=== PATIENT | female | born 1940 | race Caucasian/White ===

== ENCOUNTER 2020-10-20 13:03 | Emergency (ER) | payer MEDICARE ==
[~2020-10-20] VITALS: Ht 152.4 cm; Wt 69.8 kg
[~2020-10-20 13:03] MED LIST: ATIVAN1 M1 PO; B-125000 MCG/1; CARVEDILOL12.5 MG; CIPROFLOXIN HC2.5 M1 OPHTHALMIC; CO Q-10100 MG PO; CODEINE SULFATE15 MG PO; COUMADIN 2.5MG2.5 M1 PO; DOXYCYCLINE 10100 M2 PO; HYDROCODON-ACE1 EAC7 PO; HYDROCODON-ACE1 EAC8 PO; LEVO-T75 MCG PO; LIPITOR20 MG PO; NORCO 5-325 TA1 EAC1 PO; NORCO 5-325 TA1 EAC2 PO; NORCO 5-325 TA1 EACH PO; POTASSIUM20 PO; SILALITE 0.1%1 EACH TOP; SPIRONOLACTONE25 MG PO; SYNTHROID50 MCG PO; TOPROL XL100 MG PO; TOPROL XL25 MG PO; VITAMIN D350 MC2 PO; VITAMINC500 PO; ZINC SULFATE220 MG PO
[2020-10-20 13:24] LABS: ABSOLUTE NEUTROPHILS 8.7 thou/uL (1.4-8.2); BASOPHILS 0.5 % (0.0-2.0); HEMATOCRIT 32.4 % (37.0-47.0); HEMOGLOBIN 10.8 gm/dL (12.0-15.0); LYMPHOCYTES 7.8 % (24.0-44.0); MCH 31.1 pg (26.0-34.0); MCHC 33.4 g/dL (28.0-37.0); MONOCYTES 5.3 % (1.0-8.0); PLATELET COUNT 325 thou/uL (150-400); POLYS 80.4 % (36.0-66.0); RBC 3.48 mil/uL (4.20-5.00); RDW 17.8 % (10.5-14.5); WBC 10.8 thou/uL (4.0-11.0)
[2020-10-20 13:41] LABS: URINE BILIRUBIN NEGATIVE (Negative); URINE BLOOD TRACE (Negative); URINE CLARITY HAZY; URINE COLOR YELLOW; URINE GLUCOSE-RANDOM* NEGATIVE (Negative); URINE KETONES NEGATIVE (Negative); URINE LEUKOCYTES-REFLEX 2+ (Negative); URINE NITRITE-REFLEX POSITIVE (Negative); URINE PROTEIN (DIPSTICK) TRACE (Negative); URINE UROBILINOGEN 0.2 E.U./dl (0.2-1.0)
[2020-10-20 13:42] LABS: CALCIUM 9.6 mg/dL (8.5-10.1); CREATININE 1.4 mg/dL (0.6-1.0); POTASSIUM 4.4 mmol/L (3.5-5.1)
[2020-10-20 13:48] LABS: ALBUMIN 2.7 g/dL (3.4-5.0); TOTAL BILIRUBIN 0.4 mg/dL (0.2-1.0); TOTAL PROTEIN 7.4 g/dL (6.4-8.2)
[2020-10-20 13:50] LABS: APTT 42.9 Seconds (24.5-32.8); INR 1.94; PROTIME 20.5 Seconds (10.5-12.1)
[2020-10-20 14:08] LABS: URINE WBC-REFLEX >25 Many /HPF (0-5); WBC CLUMPS Many (None Seen)
[2020-10-20 14:09] LABS: BACTERIA-REFLEX >30 Many /HPF (None Seen); MUCUS 4-6 Moderate strn/LPF (None Seen); SQUAMOUS 0-3 Few /LPF (0-3)
[2020-10-20 14:10] LABS: CASTS None Seen /LPF (None Seen); CRYSTALS None Seen /LPF (None Seen); URINE RBC 1-2 Rare /HPF (NONE SEEN)
[2020-10-20] MEDS ORDERED: HYDROXYZINE HCL25 M2 PO (15:49)
[2020-10-20] MEDS ORDERED: CEPHALEXIN500 MG PO (15:49)
--- NOTE | 2020-10-20 16:07 | EKG ---
[place] [place] [address] ELECTROCARDIOGRAM REPORT Name: POONAM KING Room #: [facility]#: [id number] Admission: 10/20/20 Attend Phys: Discharge: Date of : 38 Report #: [id number] [facility] ED Test Date: 2020-10-20 Test Time: 13:50:12 Pat Name: POONAM KING Department: Room: Gender: F Flight Manager: NATANAEL : 1940 Requested By: Kavitha Spaulding Order Number: [id number] MD: Luis Dodd Measurements Intervals [place] Rate: 99 P: MD: QRS: -30 QRSD: 79 T: 18 QT: 328 QTc: 421 Interpretive Statements Atrial fibrillation Poor R wave progression Low voltage, extremity leads No previous ECG available for comparison Electronically Signed On 10-20-2020 16:07:05 CDT by Luis Dodd [email or web address] <ELECTRONICALLY SIGNED> By: Luis Dodd MD, [facility] 10/20/20 1607 1350 1350 Luis Dodd MD, FACC /EPI
[2020-10-20 17:03] VITALS: BP 122/67
== END 2020-10-20 17:03 ==
LOC: ER 13:03
PROVIDERS: Nurse Practitioner Family
DX: N39.0 Urinary tract infection, site not specified (principal); L29.9 Pruritus, unspecified; I48.91 Unspecified atrial fibrillation; E78.5 Hyperlipidemia, unspecified; Z90.49 Acquired absence of other specified parts of digestive tract; Z90.710 Acquired absence of both cervix and uterus; Z79.01 Long term (current) use of anticoagulants; Z79.899 Other long term (current) drug therapy; Z88.0 Allergy status to penicillin; Z88.2 Allergy status to sulfonamides; Z91.048 Other nonmedicinal substance allergy status; Z88.8 Allergy status to other drugs, medicaments and biological substances; Z20.822 Contact with and (suspected) exposure to COVID-19

== ENCOUNTER 2020-10-20 13:39 | Inpatient (IN) | payer OTHER, BC ==
[~2020-10-20] VITALS: Ht 160 cm; Wt 71.0 kg
[2020-10-20] MEDS ORDERED: HYDROXYZINE HCL25 M2 PO (15:49)
[2020-10-20] MEDS ORDERED: CEPHALEXIN500 MG PO (15:49)
[2020-10-23 09:34] VITALS: BP 105/48
[2020-10-23 10:06] VITALS: BP 105/48
--- NOTE | 2020-10-23 10:51 | NUR ---
PT. ARRIVED AT 0715 ON STRETCHER FROM [facility] ER. PT. HAS BEEN LIVING [facility] WHERE SHE LIVES WITH HER . SHE IS A WHITE FEMALE 79 Y/O. SHE HAS BEEN PREOCCUPIED AT HOME CALLING 911, SCREAMING ALL NIGHT, THINKS SHE IN [place]. SHE HAS BEEN HAVING INCREASED CONFUSION, AND PARANOID. SHE WAS A&O X3. SHE COULD NOT STATE WHERE SHE WAS CURRENTLY. REPORT FROM ER STATED SHE SCREAMED ALL NIGHT. SHE IS ALLERGIC TO PCN, METHALPREDNISONE, SULFA (SULFONAMIDE ABO'S), AND ADHESIVE TAPE (THE GLUE IB THE TAPE). SHE ALSO HAS IDDM, CHF, CHRONIC BACK PAIN, HTN, CKD. SHE STATES AT HOME THE [facility] COMPLAINED SHE WAS ALWAYS ON HER CALL LIGHT. SHE STATES SHE WANTED HER CIPRO AND SHE IS ALWAYS FREEZING AND/OR COLD. SHE DOES HAVE TOP AND LOWER DENTURES, NO GLASSES AND NO HEARING AIDES. SHE DENIES SI/HI OR AVH. SHE HAS TWO GIRLS BY A FIRST MARRIAGE. SHE HAS BEEN TO THIS 35. SHE STATES SHE AMBULATES WITH A WALKER WITH ASSISTANCE OF 1 OR 2. SHE LIKES HORSE BACK RIDING, AND CROCHETING. HER HUSBANDS NAME IS ROSALIE. SHE CURRENTLY DOES HAVE A UTI AND IS ON CIPRO.
--- NOTE | 2020-10-23 12:44 | NUR ---
Executive Communications Manager spoke to both DON and Unit Assistant Rylee - [phone] regarding the admission of patient. They were thankful for the update and said that they are willing to take patient back once she is stable. They also said to let them know if she needs anything like clothing, etc. Told them we would reach out if she did.
[2020-10-23 13:07] LABS: INR 1.65; PROTIME 17.6 Seconds (10.5-12.1)
[2020-10-23 19:55] VITALS: BP 102/63
--- NOTE | 2020-10-23 20:13 | NUR ---
CORRECT PHONE NUMBERS FOR RYLEE MICHAELLOSI, PTS [phone] CELL [phone] HOME
[2020-10-23 23:41] VITALS: BP 102/63
--- NOTE | 2020-10-24 05:17 | NUR ---
10-23-201914, SEATED IN HER W/C, COMPLAINS ABOUT EVERYTHING, AND WHEN PROVIDED WHAT SHE REQUESTS, SAYS THIS IS NOT LIKE MINE AT HOME. IS CONFUSED AND THINKS THAT SHE IS IN HER RESIDENCE FACILITY. REORIENTED TO PLACE, [facility] REPEATEDLY. A&OX2, ABLE TO STAND AND TRANSFER X2 ASSIST. FUSSING ABOUT NOT HAVING HER PHONE. REORIENTED TO USE OF HOSPITAL CORDLESS PHONE TO CALL FAMILY, APROPRIATE HOURS SHARED. TOOK TRAZADONE 50 @ HS WITH HER HS MEDS. TOILETED Q2 HOURS, WEARS BRIEF. REFUSED TO LAY DOWN IN BED. RETURNED TO DAY ROOM AND SEATED IN CORKY CHAIR. @ 0405, AFTER HAVING BEEN AWAKE ALL NOC, BECAME N/V X1 EMESIS NOTED. ZOFRAN 4MG ODT PROVIDED. VS SPO2 99% 98/63 119 20. ALLOWED HERSELF TO BE TRANSFERRED TO THE BS, DRESSED IN A CLEAN GOWN AND TRANSFERRED TO BED. STAYED IN BED FOR A FEW HOURS, CURRENTLY IN BED AT THIS TIME.
[2020-10-24 09:21] VITALS: BP 98/54
[2020-10-24 09:36] VITALS: BP 102/58
--- NOTE | 2020-10-24 11:13 | NUR ---
1115 RESUMMED CARE FROM OVERNIGHT SHIFT THIS AM, PATIENT IN ROOM LYING QUIET IN BED. PATIENT BROUGHT TO DAY ROOM FOR BREAKFAST TOOK MEDICATION WITHOUT INCIDENCE. PATIENT ALERT ORIENTED TO SELF ONLY PATIENT DENIES SI/HI/AH/VH AT PRESENT. PATIENTS ABDOMEN SOFT BOWEL SOUNDS PRESENT PATIENTS LUNGS CLEAR. PATIENT HAS CONFUSION PATIENT COMPLAINED ABOUT BACK PAIN, SHE A LIDOCAINE PATCH TO AFFECTED AREA. PATIENT WANTED TO SLEEP ONLY HAD 2 HOURS OF SLEEP, PATIENT IN CORKY CHAIR WITH FEET UP. PATIENT HAS NOT DISPLAYED ANY BEHAVIORS THIS SHIFT. WILL CONTINUE TO MONITOR PATIENT FOR SAFETY AND BEHAVIORS
--- NOTE | 2020-10-24 15:11 | NUR ---
Woman called asking to talk to her mother and gave pt name. When asked for privacy code she gave number that did not match any of the digits. When told code was incorrect she stated that was the number she had given out to "everyone". She proceeded to stated that she was the emergency contact and DPOA. When asked what her name was it was different from emergency contact and was listed as secondary DPOA. Name also did not match caller ID name. Privacy code rechecked and did not match. Caller asked for my name and then started asking for other nurses names. Another called with same incorrect code.
[2020-10-24 19:55] VITALS: BP 96/57
--- NOTE | 2020-10-24 23:58 | NUR ---
SITTING IN GERICHAIR IN DAYROOM RESTING WITH EYES CLOSED UPON INITIAL ASSESSMENT AT 1945. EASILY AROUSABLE TO VERBAL STIMULI. INITIALLY DURING 1;1 AND PM ASSESSMENT IRRITABLE WITH MULTIPLE COMPLAINTS RE FOOD,CARE,FAMILY NEGLECTS HER ETC.. SHORTLY THERAFTER BECAME LOUDLY TEARFUL STATING SHE MISSES HER DOG AND COULDN'T HAVE HER PHONE TO LOOK AT PICTURES OF IT-DID CALM WITH SUPPORT AND REASSURANCE AND TALKED AT LENGTH ABOUT HER PETS,MARRIAGE,CAREER ETC. IS ORIENTED TO NAME ONLY-INCORRECTLY IDENTIFYING MONTH JUL AND BELIEVES SHE IS STILL AT ASSISTED LIVING FACILTIY. COMPLIENT WITH TAKING HS MEDICATIONS. DID HAVE 2 LARGE BM THIS PM-1ST SOFT 2ND SEMI FORMED TO LOOSE. REFUSES HS COLACE STATING DOESN'T WANT IT BECAUSE OF DIARRHEA. STATES SHE PREFERS TO SLEEP IN DAYROOM SO IS CURRENTLY RESTING QUIETLY IN GERICHAIR IN DAYROOM.
--- NOTE | 2020-10-25 06:18 | NUR ---
AWAKE SINCE APPROX 0130-SITTING IN GERICHAIR IN DAYROOM PER HER REQUEST-TOILETED Q 2 HOURS AND DID HAVE 1 ADDITIONAL LARGE LOOSE STOOL(-TOTAL OF 3 THIS PM) INITIALLY SITTING QUIETLY VISITING WITH FEMALE PEER-AT 0400 BEGAN TO C/O ITCHING REQUESTING BENADRYL-BENADRYL 25MG GIVEN PO PRN WITH REPORTED MINIMAL RELIEF ON FOLLOW UP-REQUESTING "MY ITCH CREAM" SKIN PROTECTANT/MOISTURIZER APPLIED TO ARMS,LEGS,BACK,NECK PER REQUEST. PROVIDED WITH COOL WASH CLOTH,BACK RUB AND APPROX 45 MINUTES 1;1 TIME WITH STAFF BUT CONTINUES TO EXPRESS DELUSIONS OF PERSECUTION STATING "NO ONE WILL HELP ME-NO ONE WILL TAKE CARE OF ME-DON'T THEY KNOW I CAN'T HELP MYSELF" ASKING PEERS TO RUB HER BACK TELLING THEM STAFF WON'T HELP HER.DID HAVE BRIEF EPISODE OF LOUD TEARFULNESS BEFORE FALLING ASLEEP AT APPROX 0615
[2020-10-25 09:57] VITALS: BP 82/54
[2020-10-25 14:48] LABS: PROTIME 27.3 Seconds (10.5-12.1)
[2020-10-25 15:01] LABS: INR 2.62
--- NOTE | 2020-10-25 18:48 | NUR ---
0700 ASSUMED CARE OF PATIENT. PATIENT CALM AND COOPERATIVE. PATIENT FEEDS SELF WITH MIN ASSIST. MEDICATION TAKEN WHOLE WITH SOME QUESTIONS REGARDING MEDS. C/O PAIN TO BACK, STATES SCHEDULED TYLENOL IS ENOUGH. DENIES SI/HI. BS ACTIVE, LS CLEAR. PATIENT IN GERICHAIR SLEEPING OFF AND ON.
[2020-10-25 19:22] VITALS: BP 96/52
--- NOTE | 2020-10-26 01:53 | NUR ---
10-25-20 CARE TRANSFERRED 0 OBSERVED PT SITTING IN DAY ROOM SOCIALIZING WITH PEERS. LATER PT AAOX4, VSS, RR EVEN AND NONLABORED ON RA. PT DENIES SI/HI, DOES REPORT PAIN IN LOWER BACK SCORES 5 ON 0-10 SCALE. PT PRESENTS TEARFUL AND DEMANDING SHE WANTS TO GO HOME TO HER LITTLE DOG. DURING MEDICATION ADMIN PT HAD NO DIFFICULTIES. LATER PAIN PT REPORTED PAIN WAS 3 ON 0-10 SCALE. LATER PT REPORTED ITCHING AND NASAUATED, MANAGED WITH PRN MEDICATION, LOTION APPLIED TO PT REQUESTED AREAS. PT BED WAS ADJUSTED FOR COMFORT. ZERO S/S OF ACUTE DISTRESS NOTED, PT WILL CONTINUE TO BE MONITOR PER [facility] PROTOCOL.
[2020-10-26 09:17] VITALS: BP 112/70
--- NOTE | 2020-10-26 09:31 | NUR ---
0700 ASSUMED CARE OF PATIENT, PATIENT IN BED AT THAT TIME. PATIENT CHANGED AND TRANSFERED TO [facility] X 2 ASSIST. PATIENT YELLING OUT STATING "I CAN WALK AND WANT TO GO HOME". PATIENT TO DAYROOM IN [facility]. POWER EQUIPMENT TECHNOLOGY INSTRUCTOR APPROCHES PATIENT FOR MED PASS PATIENT STATES "I AM FINE AND WANT TO GO HOME". MEDICATION GIVEN TO PATIENT AND EDUCATED ON WHAT PATIENT IS RECIEVING PER PATIENT REQUEST. PATIENT STATES "I DO NOT NEED ALL OF THESE MEDS AND I NEED TO TALK TO THE DR. POWER EQUIPMENT TECHNOLOGY INSTRUCTOR OBTAINED MED CUP FROM PATIENT AND PATIENT WITH A LOUD VOICE STATES "JUST GIVE THEM LY I WILL TAKE THEM". MEDICATON TAKEN WHOLE WITHOUT DIFFICULTY. PATIENT DISRUPTING AM GROUP AND MOVED TO [place]. PATIENT MUMBLING TO SELF AND CALM AT THAT TIME. WILL CONTINUE TO OBSERVE
--- NOTE | 2020-10-26 11:47 | NUR ---
NAM spoke with Yanira Holland who initially asked when pt was going home. NAM provided an update and explained Dr. Donovan would like a family meeting. Yanira agreed but said she will be the only one in attendance by phone as pt's cannot hear well, and pt's niece just began a new job and cannot attend. Family meeting will be 10/27/20 @11am. NAM contacted [facility] at [phone], and obtain the fax number of [phone] to send updates for pt. NAM faxed updates. NAM team will continue to follow pt during her stay on this unit.
--- NOTE | 2020-10-26 12:26 | NUR ---
Nutrition: Seen due to new admit [facility]. Dx anxiety/confusion. pt reports 40# weight loss per hx even though she eats well. No meditech hx, unable to confirm accuracy. po intake 50-75% of meals with good appetite reported. pt asking for ensure supplements. Hx DM reported by nsg and is on carb controlled diet. Currently with hypoglycemia trends, BG 66-102. Will send Glucerna on trays for now as pt requests TID and follow BG/weight/po trends. Place as low nutrition risk.
--- NOTE | 2020-10-26 18:43 | NUR ---
PATIENT CONTINUES TO ATTENTION SEEK THROUGHOUT THE DAY. PATIENT REFUSES MEDICATION EVERYTIME AND WHEN BUSINESS SYSTEMS LEAD TAKES BACK CUP OF MEDS PATIENT THEN STATES "JUST GIVE IT TO ME I WILL TAKE THEM". PATIENT C/O NOT GETTING THE CORRECT MEDICATION EACH TIME. BUSINESS SYSTEMS LEAD EDUCATES PATIENT ON MEDS EACH TIME.
[2020-10-26 20:04] VITALS: BP 104/45
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
--- NOTE | 2020-10-27 04:40 | NUR ---
RESISTIVE WITH SOME OF HS MEDICATIONS THIS PM INCLUDING DEPAKOTE AND ZYPREXA STATING "I DON'T NEED ANYTHING FOR MY MOOD MY MOOD IS FINE" DID TAKE ZYPREXA AND 2 DEPAKOTE TABLETS BUT REFUSED THIRD STATING THAT IT WAS "TOO MUCH-THAT DR JUST WANTS TO KNOCK ME OUT" REQUESTED AND RECEIVED BENADRYL 25MG PO PRN FOR ITCHING TO TORSE AND ARMS . SOME MOOD LABILITY REMAINS BUT IS NOTABLY LESS THEN ON PREVIOUS SHIFTS -TEARFUL WHEN SPEAKING ABOUT HER DOG THAT AND HOW HER FAMILY DOESN'T COME TO VISIT HER. DOES RESPOND WELL TO SUPPORT,REASSURANCE FROM NURSING STAFF. IMPROVED PARTICIPATION IN TOILETING AND ADLS THIS PM-WALKED WITH SBA X2 FROM COMMODE TO BED AND TOLERATED THIS ACTIVITY WELL .
[2020-10-27 05:20] LABS: INR 2.93; PROTIME 30.3 Seconds (10.5-12.1)
[2020-10-27 09:02] VITALS: BP 107/62
[2020-10-27 09:08] VITALS: BP 107/62
--- NOTE | 2020-10-27 10:44 | NUR ---
1045 RESUMMED CARE FROM OVERNIGHT SHIFT THIS AM, PATIENT IN ROOM LYING QUIETLY. I GOT PATIENT UP GOT HER READY FOR BREAKFAST, SHE ATE TOOK MEDICATION WITHOUT INCIDENCE. PATIENT ALERT ORIENTED TO SELF ONLY PATIENT COMPLAINED OF BACK PAIN. PATIENT GETS SCHEDULED TYLENOL AND A LIDOCAIINE PATCH FOR HER BACK PAIN. PATIENT DENIES SI/HI/AH/VH AT PRESENT PATIENT PARTICPATES IN GROUPS AND DOES INTERACT WITH SOME OF THE PATIENTS. PATIENTS ABDOMEN SOFT BOWEL SOUNDS PRESENT. PATIENTS LUNGS CLEAR PATIENT HAS NOT DISPLAYED ANY BEHAVIORS WILL CONTINUE TO MONITOR PATIENT FOR SAFETY AND BEHAVIORS.
--- NOTE | 2020-10-27 11:24 | NUR ---
NAM and Dr. Donovan facilitated a family meeting with Yanira via phone. Dr. Donovan provided updates and told her that he believes she has a dementia. Yanira said her plans of moving pt's to [facility] to her apartment; pt will also be able to have her dog that she loves. In the meeting pt was agitated with Dr. Donovan when he mentioned what he believes pt suffers from. He explained that he will administer a SLUMS with pt. He suggested to Yanira that pt has a neuropsych exam in January/February. SW team will continue to follow pt during her stay on this unit.
[2020-10-27 19:05] VITALS: BP 108/61
--- NOTE | 2020-10-28 00:27 | NUR ---
Assumed care on 10/27/18 @ 19:15, seated in the day room, socializing with peers and facing the TV. Oriented to self. Proovided scheduled meds, Trazadone KBS14mt, Benedryl 25mg for itching @ 21:45. Calamine lotion topical applied to back and sides. Took meds whole with water. Very slow to comply with positioning to take meds while in bed. Refuses help, but is weak to reposition self in the bed. Repositioned in bed after application of calamine and removal of pain patch on back. Pt states that she has never used calamine and does not know if it works well. Bed in low position, bed alarm set, will continue to monitor for safety and comfort as per unit protocol.
[2020-10-28 08:00] VITALS: BP 110/48
--- NOTE | 2020-10-28 11:35 | NUR ---
PATIENT HAS BEEN UP, AND OUT ON THE UNIT, USES WHEELCHAIR FOR MOBILITY, ABLE TO PROPEL SELF. PATIENT TOOK ALL MORNING MEDICATION WHOLE WITHOUT DIFFICULTY, SHE IS EATING MEALS, AND DRINKING FLUID WELL. PATIENT IS A&O X 2-3, FORGETFUL, AND CONFUSED AT TIMES. PATIENT DENIES SUICIDAL/HOMICIDAL IDEATION "OF COURSE NOT I GOT NEW BORN GREAT GRANDSON AM LOOKING FORWARD TO SEE SOON". FOR DEPRESSION, SHE STATES "AM NOT DEPRESSED, AM JUST ANGRY THAT I DON'T HAVE CONTROL OVER MY LIFE". PATIENT HAS HISTORY OF CHRONIC BACK PAIN, RATES BACK PAIN 9/10, PRN TYLENOL 650MG GIVEN, PAIN PATCH ALSO APPLIED PER ORDER. PATIENT BLOOD SUGAR THIS MORNING WAS 61, ORANGE JUICE GIVEN, PATIENT CONSUMED 100% BREAKFAST, BLOOD SUGER RECHECKED WITH RESULT OF 80. NO S&S HYPOGLYCEMIA NOTED. PT/OT WORKING WITH PATIENT, SHE IS TOLERATING IT WELL. CALAMINE LOTION APPLIED ALL OVER HER BODY FOR ITCHING. AFFECT IS SAD/BLUNTED, MOOD DEPRESSED. NO SIGN OF ACUTE DISTRESS NOTED AT THIS TIME, WILL MONITOR FOR SAFETY.
[2020-10-28 13:30] LABS: INR 3.33; PROTIME 34.3 Seconds (10.5-12.1)
--- NOTE | 2020-10-28 18:36 | NUR ---
PATIENT HAS BEEN UP IN WHEELCHAIR, ABLE TO PROPEL SELF. SHE IS FORGETFUL, AND INTERMITTENT CONFUSION NOTED. PATIENT TOOK ALL MEDICATION WHOLE WITHOUT DIFFICULTY, SHE IS EATING MEALS, AND DRINKING FLUID WELL. PATIENT DENIES SUICIDAL/HOMICIDAL IDEATION "OF COURSE NOT, I HAVE GOT A NEW BORN -GREAT GRANDCHILD THAT I HAVE BEEN LONGING TO SEE". FOR DEPRESSION, PATIENT STATES "AM NOT DEPRESSED, AM ANGRY THAT I DON'T HAVE CONTROL OVER MY OWN LIFE, I DON'T WANT TO BE ALONE". PATIENT CONSTANTLY SAYING "HELP ME HELP ME NOBODY WANT TO HELP ME". WHEN ASKED WHAT SHE NEEDS HELP WITH, SHE DENIES NEED. "MY FAMILY DON'T WANT TO COME SEE ME". PATIENT BLOOD SUGAR BEFORE BREAKFAST WAS 61, ORANGE JUICE GIVEN, AND SHE COMSUMED 100% BREAKFAST, BLOOD SUGAR RECHECKED WITH RESULT OF 80. BLOOD SUGAR BEFORE LUNCH 82, BEFORE SUPPER 80. PATIENT DID NOT REQUIRES SLIDING SCALE INSULIN, NO S&S OF HYPOGLYCEMIA NOTED. PATIENT GOT SHOWER THIS PM, WELL TOLERATED. PATIENT HAS HX OF CHRONIC BACK PAIN, GETTING MEDICATION FOR PAIN. PRN CALAMINE LOTION APPLIED ALL OVER THIS MORNING FOR ITCHING. PRN BENADRYL GIVEN THIS PM FOR ITCHING. PATIENT CURRENTLY CRYING "PLEASE HELP ME I WANT TO GO HOME". PATIENT CONSTANTLY REDIRECTED, AND REORIENTED. AFFECT IS SAD, MOOD IS DEPRESSED. NO SIGN OF ACUTE DISTRESS NOTED AT THIS TIME, WILL MONITOR FOR SAFETY.
[2020-10-28 19:05] VITALS: BP 115/65
--- NOTE | 2020-10-29 01:23 | NUR ---
ASSESSED PT. A&OX3 FORGEFUL AND CONFUSED. SITTING ON WHEELCHAIR. EVENING MEDS GIVEN CRUSHED IN PUDDING PT ABLE TO TAKE IT DOWN. PT RECOMMENDED WILL PREFER TO TAKE IT WHOLE WITH PUDDING NEXT TIME. PT STATED BENADRLY DID HELP HER WITH HER ITCHING BUT CALAMINE LOTION DOESN'T REALLY HELP. UP WITH ASSIST TO THE BSC. TYLENOL GIVEN FOR BACK PAIN. PT HOPING TO TALK TO DTR TOMORROW AND DO MORE THERAPY TO GET BACK ON HER FEET. RESTING WELL IN BED WILL CONT TO MONITOR.
[2020-10-29 06:22] LABS: INR 4.1; PROTIME 41.8 Seconds (10.5-12.1)
[2020-10-29 07:27] VITALS: BP 93/43
--- NOTE | 2020-10-29 12:00 | NUR ---
[facility] SW team will continue to follow pt during her stay on this unit.
[2020-10-29 17:07] VITALS: BP 93/43
--- NOTE | 2020-10-29 17:16 | NUR ---
Assumed pt care at 0700. pt was alert and oriented to person, situation and time. Assessments completed, vss. pt was calm and co-operative with care. Took meds whole, no difficulty noted. PT abulates with a w/c. pt goals was to work with pt. Denies si/hi/. c/o pain. pain meds administered as ordered. pt c/o of itching benedryl administered as ordered. pt had two occurance of bowel movement this shift. AT this time pt is eating dinner. will continue to monitor.
[2020-10-29 19:46] VITALS: BP 128/68
--- NOTE | 2020-10-30 04:32 | NUR ---
ASSESSMENT: PT REMAIN ALERT AND ORIENT TIMES THREE. TOOK MEDS WHOLE WITH WATER. AFTER TAKING MEDS, PT DID HAVE A WEAK NON-PRODUCTIVE COUGH. PT STATE THAT SHE JUST BEGAN TAKING LISINOPRIL AND THAT SHE THINKS HER COUGH IS R/T PAST CHEMO/RADIATION TREATMENTS. SLEPT MOST OF THE NIGHT, WILL CONTINUE TO MONITOR.
[2020-10-30 05:43] LABS: INR 3.53; PROTIME 36.2 Seconds (10.5-12.1)
[2020-10-30 10:18] VITALS: BP 112/73
[2020-10-30 10:25] VITALS: BP 112/73
--- NOTE | 2020-10-30 12:04 | NUR ---
In tx team it was discussed tht pt is ready for d/c. NAM contacted [facility] and spoke to Sarita who asked her to send updates via email to [email or web address]. She said the fax from yesterday was too dark. She agreed to a 10 am discharge on Monday, and asked SW to arrange transportation and have pt undergo a covid test. NAM provided an update to Dr. zamora. NAM contacted [employer] and arranged for transportation on Monday; trip # is [id number]. NAM contacted Yanira and provided an update. NAM emailed via encrypted email updates for pt. SW team will continue to follow pt during her stay on this unit.
--- NOTE | 2020-10-30 12:11 | NUR ---
In tx team it was discussed that pt is ready for d/c on Monday. SW contacted pt's who agreed upon a 10 am discharge. NAM asked who is pt's PCP and was told Radha Pinto in [facility] at [phone]. NAM asked Edgard if he would like information for a psych doctor for pt. He declined and said he'd rather stay with pt's PCP. SW team will continue to follow pt during her stay on this unit.
--- NOTE | 2020-10-30 17:20 | NUR ---
Assumed pt care at 0700. pt was alert and oriented to self, time and situation. Took meds whole, no difficulty noted. Calm, and compliant with care. AMbulates with wheel chair. Pt had a covid test done this shift. Denies si/hi. c/o pain. Medication administered as ordered. At 1718 pt spilled hot tea on her stomach. No burn noted on her stomach upon assessment. pt denies pain after the incident. AT this time pt is eating dinner. Will continue to monitor.
[2020-10-30 19:44] VITALS: BP 92/61
--- NOTE | 2020-10-31 03:47 | NUR ---
patient aox3 makes needs known. pain controlled this shift. patient took meds with encouragement.patient continent this shift.patient denied all psych issued. patient had a flat affect, poor eye contact, fair grooming and hygiene. patient encouraged fluids. fall precaution in place. patient in bed asleep at this time breathing regular and unlaboured.
[2020-10-31 05:00] LABS: INR 3.01; PROTIME 31.1 Seconds (10.5-12.1)
[2020-10-31 09:19] VITALS: BP 104/59
[2020-10-31 12:48] VITALS: BP 104/59
--- NOTE | 2020-10-31 12:54 | NUR ---
Assumed pt care at 0700. pt was alert and oriented to person, time and situation. Assessments completed,vss. Calm, co-operative and complaint with care. DENIES si/hi. complained of pain. Meds administered as ordered. Ambulates with a w/c. No sign of acute distress noted upon assessments. pt makes needs known. Pt is excited about d/c on Monday. At this time pt is in the day room watching TV. Will continue to monitor.
[2020-10-31 20:50] VITALS: BP 105/64
[2020-11-01 01:13] VITALS: BP 105/64
--- NOTE | 2020-11-01 01:20 | NUR ---
Assumed care on 10/31/20 @ 19:15, high fall risk with a Light of 50 noted. x1-2 assist, uses w/c. to ambulate, can walk with walker for a short distance. Fairly steady ambulation once standing. Cannot stand unaided. Room changed to 521 B. Compliant with medication administration, taking meds whole with water. Held Senna as patient refused d/t loose bm today. Will continue to monitor for safety and comfort as per unit protocol.
[2020-11-01 05:32] LABS: HEMATOCRIT 28.9 % (37.0-47.0); HEMOGLOBIN 9.5 gm/dL (12.0-15.0); MCH 31.5 pg (26.0-34.0); MCV 95.5 fL (80.0-100.0); RBC 3.03 mil/uL (4.20-5.00); RDW 18.2 % (10.5-14.5); WBC 9.8 thou/uL (4.0-11.0)
[2020-11-01 05:44] LABS: CREATININE 1.1 mg/dL (0.6-1.0); POTASSIUM 4.5 mmol/L (3.5-5.1)
[2020-11-01 06:05] LABS: INR 2.48; PROTIME 25.9 Seconds (10.5-12.1)
[2020-11-01 09:12] VITALS: BP 110/64
--- NOTE | 2020-11-01 15:53 | NUR ---
Alert and orientated to person and place. Calm, cooperative and compliant. States skin in itching, requesting benadryl. Denies SI/HI. Lidocaine patch and tylenol given for low back pain, pain decreased from 3-4 to 2. Breath sounds clear. Reg HR auscultated. Color pink with brisk capillary refill and palpable peripheral pulses. Brief dry. Hypoactive bowel sounds over soft, rounded abdomen. Sitting in WC without s/o distress. Compliant with meds, took whole.
--- NOTE | 2020-11-01 15:58 | NUR ---
RT PROGRESS NOTE-- PT HAS BEEN IN ATTENDANCE TO MOST OF THE RECREATION THERAPY GROUPS. HOWEVER, WHEN SHE IS GROUPS SHE STATES SHE'S IN PAIN. SHE APPEARS TO BE STILL POSITIVE WITH SELF AND OTHERS DESPITE WHAT SHE HAS GOING.
[2020-11-01 18:55] VITALS: BP 111/59
--- NOTE | 2020-11-02 05:20 | NUR ---
11-01-20 CARE TRANSFERRED 1900 OBSERVED PT SITTING IN DAY ROOM. LATER PT AAOX4, VSS, RR EVEN AND NONLABORED RA, PT DENIES SI/HI AND PAIN. PT PRESENTS CALM AND COOPERATIVE. DURING MEDICATION ADMIN PT HAD NO DIFICULTIES TAKING MEDICATION WHOLE WITH WATER. ZERO S/S OF ACUTE DISTRESS NOTED, PT WILL CONTINUE TO BE MONITOR PER [facility] PROTOCOL.
[2020-11-02] MEDS ORDERED: BENADRYL ALLERG25 MG PO (09:05)
[2020-11-02] MEDS ORDERED: MIDODRINE HCL 55 M1 PO (09:05)
[2020-11-02] MEDS ORDERED: WARFARIN SODIUM3 MG PO (09:05)
[2020-11-02] MEDS ORDERED: LISINOPRIL2.5 MG PO (09:06)
[2020-11-02] MEDS ORDERED: LIPITOR10 MG PO (09:06)
[2020-11-02] MEDS ORDERED: BAYER CHEWABLE81 MG PO (09:07)
[2020-11-02] MEDS ORDERED: TYLENOL325 MG PO (09:08)
[2020-11-02] MEDS ORDERED: BUSPIRONE HCL5 MG PO (09:09)
[2020-11-02] MEDS ORDERED: DIVALPROEX SOD250 M1 PO (09:09)
[2020-11-02] MEDS ORDERED: PEPCID20 MG PO (09:11)
[2020-11-02] MEDS ORDERED: STIMULANT LAXA1 EACH PO (09:11)
[2020-11-02] MEDS ORDERED: MAGNESIUM400 MG PO (09:11)
[2020-11-02] MEDS ORDERED: B-12500 MCG PO (09:13)
[2020-11-02 10:01] VITALS: BP 100/55
[2020-11-02 11:59] VITALS: BP 100/55
--- NOTE | 2020-11-02 12:19 | NUR ---
1200 RESUMMED CARE FROM OVERNIGHT SHIFT THIS AM, PATIENT IN DAY ROOM TALKING WITH ANOTTHER PATIENT. PATIENT ALERT ORIENTED TO SELF AND PLACE PATIENT HAS NOT DISPLAYED ANY BEHAVIORS. PATIENT DENIES SI/HI/AH/VH AT PRESENT PATIENTS ABDOMEN SOFT BOWEL SOUNDS PRESENT. PATIENTS BOWEL SOUNDS PRESENT PATIENTS LUNGS CLEAR. PATIENT DISCHARGE TO [facility] WITH BELONGINGS AND DISCHARGE INSTRUCTIONS. PATIENTS SCRIPTS CALLED TO [facility] IN [place].
--- NOTE | 2020-11-02 13:28 | NUR ---
NAM D/C NOTE SW faxed to [facility] a copy of pt's discharge docs. NAM will submit docs to pt's hospital file. No other needs for SW team to address at this time.
--- NOTE | 2020-11-03 18:56 | D ---
[facility] [place] [address] DISCHARGE SUMMARY Name: POONAM KING Room #: [facility]A-[facility] IN M.R.#: [id number] Admission: 10/23/20 Attend Phys: Namrata Donovan DO Discharge: 11/02/20 Date of : 38 Report #: [id number] THIS REPORT FOR: cc: GE PUGA Physician not on staff Namrata Donovan DO ~ DOC #: [id number] NAMRATA Donovan DO DATE OF SERVICE: 11/02/2020 INPATIENT PSYCHIATRIC DISCHARGE SUMMARY DATE OF ADMISSION: 10/23/2020 DATE OF DISCHARGE: 11/02/2020 ATTENDING PSYCHIATRIST: Namrata Donovan DO. RACING CAR DRIVER: Jane Hugo M.D. DISCHARGE DIAGNOSES: As follows: Major neurocognitive disorder, likely due to Alzheimer's disease, mild degree with behavioral disturbance, unspecified anxiety, gait disturbance. DISPOSITION: The patient is discharging to assisted living at [facility]. Psychiatric and medical care to be provided by receiving facility. DISCHARGE MEDICATIONS: She will take vitamin D3 2000 International Units oral daily for supplementation, levothyroxine 75 mcg oral daily for replacement, Benadryl 25 mg oral q. 6 hours p.r.n. for profound itching this according to the patient is due to psoriasis, midodrine 5 mg oral daily at 0800, 1300, and 1730 hours for hypotension; warfarin 1 mg oral daily for atrial fibrillation, atorvastatin 10 mg oral at bedtime, lisinopril 2.5 mg oral at bedtime, aspirin 81 mg oral daily for heart protection, hypertension, atorvastatin for hyperlipidemia, Depakote ER 1250 mg oral at bedtime for mood stabilization, buspirone 5 mg oral 3 times a day for anxiety, magnesium oxide 400 mg oral daily for replacement, senna docusate 2 tabs oral twice daily for bowel motility, hold if diarrhea, famotidine 20 mg oral daily for GERD and vitamin B12 1000 mcg oral daily. Regular diet, Glucerna shake recommended with all meals, daily Accu-Cheks to keep tabs on blood sugar. LABORATORY DATA: Summary of labs on this admission, H and H 9.5 and 28.9. White count 9.8, platelet count 275, INR was 2.48 on 11/01/2020. She had previously been on higher doses of warfarin at 2.5 mg. Chemistry on this admission, sodium 142, potassium 4.5, chloride 102, bicarbonate 31, anion gap 9, BUN 25, creatinine 1.1, estimated GFR 48, glucose 63. Lactic acid 1.[address] [address] DISCHARGE SUMMARY Name: POONAM KING Room #: 522A[facility] IN M.R.#: [id number] Admission: 10/23/20 Attend Phys: Namrata Donovan DO Discharge: 11/02/20 Date of : 38 Report #: [id number] admission. Calcium 9.0, total bilirubin 0.4, AST 26, ALT 20, alkaline phosphatase 176, albumin low at 2.7. TSH on 10/2005 normal at 1.908. Urinalysis showed some mucus, bacteria, white blood cells on culture. It was Enterobacter cloacae complex, which was treated. REASON FOR ADMISSION: Back on 10/23 or so, an 79-year-old female sent out from [place] at [facility]. The patient apparently had called 911 and got herself sent to the emergency room. Prior to admission, she did have a formal diagnosis of dementia, dealing with multiple medical problems. She had apparently been having episodes of crying, reporting that she had been thrown about by CNAs at her facility, feeling lonely, yelling when male staff entered her room. HOSPITAL COURSE: Patient was admitted to Geriatric Psychiatry Unit. The patient was initially on a sarcastic side, resistant to medications. We nudged her to take them. The Depakote had been at a lower level on 10/27/2020 at 26. It was increased from I believe 750-1250 a day and then the blood level was 60, which I was pleased with. The patient participated in groups and several telephone conferences with her daughter, Yanira. Apparently, her and dog had been living elsewhere and Yanira is going to have them move in with her in her [place] apartment. I think overall this will be favorable for the patient. The patient was on no code this admission. CONDITION AT DISCHARGE: Stable. No SI. No HI. PHYSICAL EXAMINATION: VITAL SIGNS: Temperature 35.6, pulse 109, respirations 18, BP 100/55, O2 sat 99%. MUSCULOSKELETAL: Kyphotic in wheelchair. Gait not tested. MENTAL STATUS EXAM: This is a well-developed, ill-appearing, older than age-appearing female. Attention fair. Concentration limited. Speech is normal in rate, amount and tone. Thought process: Linear and goal directed. Thought content, focused on discharge, seen her and dog. No psychomotor agitation or psychomotor retardation. Mood and affect were congruent and euthymic. Denied SI or HI. Denied auditory, visual, or tactile hallucinations. Memory not formally tested, known to be impaired. Insight limited. Judgment limited. Fund of knowledge average. I did do a SLUMS on her [employer] Mental Status Examination at this admission. The patient scored a 15/30. PROGNOSIS: Guarded given age of 79 and having a neurodegenerative disorder and medical comorbidities. DO SAMANTHA Corona/KIEL/DONN [facility] [address] [place] [address] DISCHARGE SUMMARY Name: KINGPOONAM Room #: 522A-[facility] IN .R.#: [id number] Admission: 10/23/20 Attend Phys: Namrata Donovan DO Discharge: 11/02/20 Date of : 38 Report #: [id number] <ELECTRONICALLY SIGNED> By: Namrata Donovan DO 11/03/20 1856 [id number] Namrata Donovan DO /nt
== END 2020-11-02 10:35 | DRG 57 ==
LOC: SBH → EROBS 10-23 05:11 → SBH 10-23 08:04
PROVIDERS: Hospitalist; Internal Medicine; ADMIT Psychiatry & Neurology Psychiatry; ATTEND Psychiatry & Neurology Psychiatry
DX: G30.9 Alzheimer's disease, unspecified (principal); F02.81 Dementia in other diseases classified elsewhere, unspecified severity, with behavioral disturbance; N17.9 Acute kidney failure, unspecified; N18.9 Chronic kidney disease, unspecified; F01.51 Vascular dementia, unspecified severity, with behavioral disturbance; I13.0 Hypertensive heart and chronic kidney disease with heart failure and stage 1 through stage 4 chronic kidney disease, or unspecified chronic kidney disease; N39.0 Urinary tract infection, site not specified; F41.9 Anxiety disorder, unspecified; I50.9 Heart failure, unspecified; E11.22 Type 2 diabetes mellitus with diabetic chronic kidney disease; G89.29 Other chronic pain; E78.00 Pure hypercholesterolemia, unspecified; E86.0 Dehydration; I95.9 Hypotension, unspecified; L40.9 Psoriasis, unspecified; L30.9 Dermatitis, unspecified; I48.91 Unspecified atrial fibrillation; R26.9 Unspecified abnormalities of gait and mobility; E78.5 Hyperlipidemia, unspecified; E03.9 Hypothyroidism, unspecified; M54.9 Dorsalgia, unspecified; G25.81 Restless legs syndrome; F32.9 Major depressive disorder, single episode, unspecified; F39 Unspecified mood [affective] disorder; I25.10 Atherosclerotic heart disease of native coronary artery without angina pectoris; Z20.822 Contact with and (suspected) exposure to COVID-19; Z88.8 Allergy status to other drugs, medicaments and biological substances; Z88.0 Allergy status to penicillin; Z88.2 Allergy status to sulfonamides; Z95.1 Presence of aortocoronary bypass graft; Z85.42 Personal history of malignant neoplasm of other parts of uterus; Z90.710 Acquired absence of both cervix and uterus; Z90.49 Acquired absence of other specified parts of digestive tract; Z98.891 History of uterine scar from previous surgery; Z85.828 Personal history of other malignant neoplasm of skin; Z85.72 Personal history of non-Hodgkin lymphomas
CPT/HCPCS: 10880

== ENCOUNTER 2020-10-22 20:58 | Emergency (ER) | payer OTHER, BC ==
[~2020-10-22] VITALS: Ht 162.6 cm; Wt 68.0 kg
[~2020-10-22 20:58] MED LIST changes: +CEPHALEXIN500 MG PO; +HYDROXYZINE HCL25 M2 PO
[2020-10-22 21:53] LABS: ABSOLUTE NEUTROPHILS 10.1 thou/uL (1.4-8.2); BASOPHILS 0.7 % (0.0-2.0); EOSINOPHILS 9.2 % (0.0-3.0); HEMATOCRIT 32.5 % (37.0-47.0); HEMOGLOBIN 10.4 gm/dL (12.0-15.0); LYMPHOCYTES 6.9 % (24.0-44.0); MCH 30.1 pg (26.0-34.0); MCV 94.1 fL (80.0-100.0); MONOCYTES 4.7 % (1.0-8.0); PLATELET COUNT 361 thou/uL (150-400); POLYS 78.5 % (36.0-66.0); RBC 3.45 mil/uL (4.20-5.00); RDW 18.2 % (10.5-14.5); WBC 12.9 thou/uL (4.0-11.0)
[2020-10-22 21:56] LABS: CALCIUM 9.1 mg/dL (8.5-10.1); CREATININE 1.3 mg/dL (0.6-1.0)
[2020-10-22 22:29] LABS: URINE BILIRUBIN NEGATIVE (Negative); URINE BLOOD NEGATIVE (Negative); URINE CLARITY CLEAR; URINE COLOR YELLOW; URINE GLUCOSE-RANDOM* NEGATIVE (Negative); URINE KETONES NEGATIVE (Negative); URINE LEUKOCYTES-REFLEX NEGATIVE (Negative); URINE NITRITE-REFLEX NEGATIVE (Negative); URINE PROTEIN (DIPSTICK) NEGATIVE (Negative); URINE SPECIFIC GRAVITY 1.015 (1.005-1.035); URINE UROBILINOGEN 0.2 E.U./dl (0.2-1.0)
[2020-10-23 07:07] VITALS: BP 99/58
== END 2020-10-23 07:09 | disposition admitted as inpatient to this hospital (09) ==
LOC: ER 20:58
PROVIDERS: Nurse Practitioner
DX: F41.9 Anxiety disorder, unspecified (principal); Z20.822 Contact with and (suspected) exposure to COVID-19; R41.0 Disorientation, unspecified; I48.91 Unspecified atrial fibrillation; F91.8 Other conduct disorders; E78.00 Pure hypercholesterolemia, unspecified; Z88.0 Allergy status to penicillin; Z88.2 Allergy status to sulfonamides; Z88.8 Allergy status to other drugs, medicaments and biological substances; Z79.01 Long term (current) use of anticoagulants; Z79.899 Other long term (current) drug therapy; Z90.710 Acquired absence of both cervix and uterus; Z98.890 Other specified postprocedural states; Z95.1 Presence of aortocoronary bypass graft

== ENCOUNTER 2021-01-04 08:09 | Inpatient (IN) | payer OTHER, BC ==
[~2021-01-04] VITALS: Ht 160 cm; Wt 67.1 kg
[2021-01-04] VITALS (7 sets, daily range): BP systolic 103–136; BP diastolic 34–55
[~2021-01-04 08:09] MED LIST changes: +B-12500 MCG PO; +BAYER CHEWABLE81 MG PO; +BENADRYL ALLERG25 MG PO; +BUSPIRONE HCL5 MG PO; +DIVALPROEX SOD250 M1 PO; +LIPITOR10 MG PO; +LISINOPRIL2.5 MG PO; +MAGNESIUM400 MG PO; +MIDODRINE HCL 55 M1 PO; +PEPCID20 MG PO; +STIMULANT LAXA1 EACH PO; +TYLENOL325 MG PO; +WARFARIN SODIUM3 MG PO
[2021-01-04 08:29] LABS: HEMATOCRIT 21.2 % (37.0-47.0); HEMOGLOBIN 7.1 gm/dL (12.0-15.0); MCH 31.1 pg (26.0-34.0); MCHC 33.3 g/dL (28.0-37.0); MCV 93.6 fL (80.0-100.0); RBC 2.27 mil/uL (4.20-5.00); RDW 16.1 % (10.5-14.5); WBC 11.8 thou/uL (4.0-11.0)
[2021-01-04 08:44] LABS: CALCIUM 9.1 mg/dL (8.5-10.1); CREATININE 1.6 mg/dL (0.6-1.0); POTASSIUM 4.8 mmol/L (3.5-5.1)
[2021-01-04 08:50] LABS: ALBUMIN 2.1 g/dL (3.4-5.0); TOTAL BILIRUBIN 0.3 mg/dL (0.2-1.0); TOTAL PROTEIN 6.6 g/dL (6.4-8.2)
[2021-01-04 08:58] LABS: PROTIME 59.2 Seconds (9.3-11.4)
[2021-01-04 09:13] LABS: INR 5.8
[2021-01-04] MEDS ORDERED: HYDROXYZINE HCL10 M2 PO (09:38)
[2021-01-04] MEDS ORDERED: FLOMAX0.4 MG PO (09:38)
[2021-01-04] MEDS ORDERED: SALONPAS1 EACH TOP (09:39)
[2021-01-04] MEDS ORDERED: TOPROL XL25 MG PO (09:39)
[2021-01-04] MEDS ORDERED: JANTOVEN2 MG PO (09:41)
[2021-01-04 15:55] LABS: % SATURATION 17 % (20-39); IRON 26 ug/dL (50-170); TIBC 152 ug/dL (250-450)
[2021-01-04 16:12] LABS: FOLIC ACID 4.5 ng/mL (8.6-58.9)
--- NOTE | 2021-01-04 16:19 | NUR ---
PT ARRIVED AT 461 AROUND 15:00, VITAL SIGNS OBTAINED. ADDMISSION EDUCATION GIVEN, ASSESSMEMT DONE. PROVIDE FALL RISK EDUCATION. COME SEEN PATIENT. TELE APPLIED ON. WILL MONITOR PATIENT SAFETY AND FOLLOW ORDERS.
[2021-01-04 16:28] LABS: HEMOGLOBIN 6.8 gm/dL (12.0-15.0)
[2021-01-04 16:29] LABS: HEMATOCRIT 20.6 % (37.0-47.0)
--- NOTE | 2021-01-04 19:51 | NUR ---
PT REPORT CHRONIC LOWER BACK PAIN BREAKOUT DURING SHIT CHANGE. NO PAIN MEDICATION IS AVALIABLE AT THIS TIME. PT IS UNASSESS BY PT OR OT AND NOT SAFETY TO GET UP DUE TO FALL IN HOME FOR ADDIMISSION REASON. IV TEAM PAGED HAD HAD THE SECOND IV AVALIABLE AROUNG 18:30, STARTED IV VITAMINE K. SUBQ VITAMINE K ORER IS ACTIVE BUT PHARMACY REGARD IT A DUPLICATED ORDER WITH IV VK DRIP AND DID NOT SENT TO THE FLOOR. PT HAS CONTACT ISOLATION ORDER, UNCLEAR REASON. NO RELATED INFO REPORTED FROM ED NURSE. REPORTED TO . BLOOD ORERED BUT LAB HAS NOT CALL FOR BLOOD READY UNTIL SHIFT CHANGE. PASS TO MASONRY CONTRACTOR NURSE CAROLINA.
[2021-01-05 05:41] LABS: HEMATOCRIT 22.6 % (37.0-47.0); HEMOGLOBIN 7.4 gm/dL (12.0-15.0); MCH 30.7 pg (26.0-34.0); MCHC 32.8 g/dL (28.0-37.0); MCV 93.6 fL (80.0-100.0); RBC 2.42 mil/uL (4.20-5.00); RDW 15.1 % (10.5-14.5); WBC 11.9 thou/uL (4.0-11.0)
[2021-01-05 05:48] LABS: INR 1.61; PROTIME 17.2 Seconds (10.5-12.1)
[2021-01-05 05:57] LABS: URINE BILIRUBIN NEGATIVE (Negative); URINE BLOOD 2+ (Negative); URINE CLARITY SL CLOUDY; URINE COLOR YELLOW; URINE GLUCOSE-RANDOM* NEGATIVE (Negative); URINE KETONES NEGATIVE (Negative); URINE LEUKOCYTES-REFLEX NEGATIVE (Negative); URINE NITRITE-REFLEX NEGATIVE (Negative); URINE PROTEIN (DIPSTICK) NEGATIVE (Negative); URINE SPECIFIC GRAVITY 1.015 (1.005-1.035); URINE UROBILINOGEN 0.2 E.U./dl (0.2-1.0)
[2021-01-05 05:59] LABS: CALCIUM 8.5 mg/dL (8.5-10.1); CREATININE 1.5 mg/dL (0.6-1.0); POTASSIUM 4.6 mmol/L (3.5-5.1)
[2021-01-05 06:04] LABS: CASTS None Seen /LPF (None Seen); MUCUS 0-3 Light strn/LPF (None Seen); SQUAMOUS 0-3 Few /LPF (0-3)
[2021-01-05 06:05] LABS: URINE WBC-REFLEX 0-5 Rare /HPF (0-5)
[2021-01-05 06:06] LABS: CRYSTALS None Seen /LPF (None Seen); URINE RBC 3-10 Few /HPF (NONE SEEN)
[2021-01-05 07:54] VITALS: BP 98/42
--- NOTE | 2021-01-05 08:29 | NUR ---
UPON INITIAL ASSESSMENT LAST NIGHT, PT WAS VERY ANXIOUS, MOANING AND CRYING DUE TO BACK PAIN AND FEELING COLD. WARM BLANKETS PROVIDED. PT ALSO C/O NAUSEA. NOTIFIED DR MANZANARES. ORDERS RECEIVED. PRN ZOFRAN AND DILAUDID GIVEN WITH GOOD RELIEF. PT WAS TAKEN FOR CT SCAN OF THORACIC AND LUMBAR SPINE PER DR ORDER. 1 UNIT RBCS TRANSFUSED PER ORDER. PT TOLERATED THE TRANSFUSION WELL. VSS. AFEBRILE. PT C/O ITCHING SKIN DUE TO HER PSORIASIS. LOTION APPLIED TO IRRITATED AREAS. DTR/DPOA (MARY JANE) CALLED UNIT EARLY IN THE SHIFT. UPDATED PROVIDED ON PT STATUS AND POC. MARY JANE STATED PT CAN BE VERY ANXIOUS AT TIMES. PT HAD 2 LARGE BOWEL MOVEMENTS THIS MORNING. NO VISIBLE BLOOD NOTED IN HER STOOL. PT DID NOT SLEEP MUCH DURING THE NIGHT. SHE WOULD SLEEP FOR SHORT PERIODS OF TIME BUT WAS ANXIOUS AND RESTLESS WHEN AWAKE. PROGRESSING VERY SLOWLY TOWARD POC GOALS. REPORT GIVEN TO DAY SHIFT RN.
--- NOTE | 2021-01-05 08:38 | NUR ---
THIS MORNING, PT TALKED ON PHONE WITH FRIEND. WHILE ON THE PHONE, PT CALLED RN INTO HER ROOM TO DISCUSS HER DNR CODE STATUS. PT'S FRIEND COULD BE HEARD TELLING PT PARTIALLY INACCURATE INFORMATION ABOUT THE MEANING OF DNR CODE STATUS. PT'S FRIEND REMAINED ON SPEAKER PHONE WHILE RN WAS IN THE ROOM. THIS RN EXPLAINED IN DETAIL THE MEANING OF A FULL CODE VS DNR CODE STATUS. PT'S FRIEND INTERRUPTED RN'S EXPLANATION MUTIPLE TIMES. HOWEVER, PT KEPT FRIEND ON SPEAKER PHONE DURING THE CONVERSATION. PT REQUESTED RN TAKE OFF HER DNR BRACELET B/C SHE NO LONGER WANTED TO BE DNR. DNR BAND TAKEN OFF PT. THIS RN CALLED PT'S DPOA/GRANDDTR (NASIR JOHNSON) TO UPDATE HER ON THE SITUATION AND CONVERSATION WITH PT AND PT'S FRIEND. NASIR STATED PT HAD JUST TOLD THE ER DR YESTERDAY THAT SHE WANTED TO BE A DNR. NASIR STATED SHE WOULD COME VISIT PT THIS MORNING AND DISCUSS THE ISSUE WITH PT BEFORE RN CALLS DR TO CHANGE CODE STATUS ORDER. UPDATED DAY SHIFT RN WITH THIS INFORMATION.
--- NOTE | 2021-01-05 12:32 | 2DMMODE ---
[facility] [place] [address] 2 D/M-MODE ECHOCARDIOGRAM Name: POONAM KING Room #: 461-P ADM IN M.R.#: [id number] Admission: 01/04/21 Attend Phys: German Roemro, Discharge: Date of : 39 Report #: [id number] THIS REPORT FOR: cc: FAM - Family physician unknown FAM - Family physician unknown Jose Veloz MD [facility] ~ APPROVED REPORT Study performed: 01/05/2021 11:37:08 EXAM: Comprehensive 2D, Doppler, and color-flow Echocardiogram BSA: 1.68 HR: 67 bpm BP: 98/42 mmHg Rhythm: Atrial Fibrillation Other Information Study Quality: Good Indications Hypotension Diabetes Atrial Fibrillation CAD 2D Dimensions RVDd: 47.15 mm IVSd: 8.56 (7-11mm) LVOT Diam: 19.27 (18-24mm) LVDd: 48.12 mm PWd: 8.53 (7-11mm) Ascending Ao: 33.00 (22-36mm) LVDs: 37.89 (25-40mm) Left Atrium: 50.45 (27-40mm) Aortic Root: 30.58 mm IVC: 23.00 mm Volumes Left Atrial Volume (Systole) Single Plane 4CH: 74.95 mL Single Plane 2CH: 82.86 mL LA ESV Index: 54.00 mL/m2 Aortic Valve AoV Peak Alberto.: 1.24 m/s AO Peak Gr.: 6.14 mmHg LVOT Max P.57 mmHg LVOT Max V: 0.95 m/s [facility] [address] [place] [address] 2 D/M-MODE ECHOCARDIOGRAM Name: KINGPOONAMJAHAIRA BURTONE Room #: 461-P ADM IN M.R.#: [id number] Admission: 01/04/21 Attend Phys: German Judge Discharge: Date of : 39 Report #: [id number] ELIZABETH Vmax: 2.22 cm2 Pulmonary Valve PV Peak Alberto.: 1.06 m/s PV Peak Gr.: 4.52 mmHg Tricuspid Valve TR Peak Alberto.: 3.26 m/s TR Peak Gr.: 42.55 mmHg PA Pressure: 53.00 mmHg Left Ventricle The left ventricle is normal size. Paradoxical septal motion consistent with conduction abnormality. There is normal left ventricular wall thickness. Left ventricular systolic function is borderline. LVEF is 50%. This study is not technically sufficient to allow evaluation of the LV diastolic function due to atrial fibrillation. Right Ventricle Right ventricle is dilated. Right ventricular systolic function is grossly normal. Atria Left atrium is dilated. Right atrium is dilated. Aortic Valve The aortic valve is normal in structure. The Aortic valve is sclerotic. Mild aortic regurgitation. There is no aortic valvular stenosis. Mitral Valve The mitral valve is normal in structure. Moderate mitral regurgitation. No evidence of mitral valve stenosis. Tricuspid Valve The tricuspid valve is normal in structure. There is moderate tricuspid regurgitation. Estimated PAP 53 mmHg. There is moderate pulmonary hypertension. Pulmonic Valve The pulmonary valve is normal in structure. There is no pulmonic valvular regurgitation. Great Vessels The aortic root is normal in size. IVC is dilated and collapses <50% with inspiration. [facility] [address] [place] [address] 2 D/M-MODE ECHOCARDIOGRAM Name: SAI KINGJORIE SUYAPA Room #: [facility] IN M.R.#: [id number] Admission: 01/04/21 Attend Phys: German Judge Discharge: Date of : 38 Report #: [id number] Pericardium There is no pericardial effusion. <Conclusion> Study performed in atrial fibrillation Normal left ventricular size/wall thickness Ejection fraction 50% Right ventricle mildly dilated with normal function Mild biatrial enlargement Color-flow Doppler studies performed of the aortic/mitral/tricuspid/pulmonary valve Mild aortic valve insufficiency Mild to moderate mitral valve insufficiency Moderate tricuspid valve insufficiency Pulmonary systolic pressure estimated 53 mmHg Normal aortic root size No pericardial effusion <ELECTRONICALLY SIGNED> By: Jose Veloz MD, [facility] 01/05/21 1232 1232 1232 Jose Veloz MD, FACC /INF
[2021-01-05 16:30] VITALS: BP 133/38
--- NOTE | 2021-01-05 19:37 | NUR ---
1300 patient was sleeping and pct asked to check her tele monitor and patient said no that shes sleeping. PCT let her sleep awhile and tried again and patient still refused. nurse went in to see patient to remind her that shes in the hospital and current VS, tele monitoring, medications are important anf needed. She still refused and wanted to sleep. CT called to 4w for her to be brought down for pelvis ct, patient said I dont want that done. Nurse explained the importance of why it was being performed and she still stated no she didnt want it. AUDI Vivien called and notified of the refusals and she came to talk to patient and she was sleeping and Vivien was unable to get her fully awake. Very sleepy. Dr. Romero called and notified of refusal of CT and he said ok. Afternoon medications not given to patient due to her wanting to sleep-buspar, midodrine, tylenol. Golytle prepared and sat at bedside @ 1700. Patient opened eyes for only a few seconds during explaining what it was for and how to consume and went back to sleep. Nurse notified hourly shift manager nurse of this information.
[2021-01-05 21:52] VITALS: BP 105/57
--- NOTE | 2021-01-06 01:16 | NUR ---
PT REFUSED TO DRINK MEDICATION FOR BOWEL PREP FOR COLONOSCOPY. EDUCATION PROVIDED TO PT REGARDING EGD AND COLONOSCOPY PROCEDURES SCHEDULED FOR 01/06. PT STATED SHE WOULD AGREE TO HAVE THE EGD BUT DOES NOT WANT TO HAVE COLONOSCOPY UNTIL SHE TALKS TO THE GI DOCTOR. PT UNDERSTANDS SHE IS NPO AFTER MIDNIGHT FOR EGD TODAY.
--- NOTE | 2021-01-06 01:20 | NUR ---
PT SLEPT FOR THE FIRST FEW HOURS OF THE SHIFT, UNTIL AWAKENED FOR BEDTIME MEDICATIONS. ONCE AWAKE, SHE WAS ANXIOUS AND TEARFUL. REASSURANCE AND EMOTIONAL SUPPORT PROVIDED. HYDROCODONE GIVEN FOR C/O BACK PAIN. WARM BLANKETS PROVIDED. PT C/O ITCHING SKIN DUE TO PSORIASIS. CONTAINERS SALES REPRESENTATIVE BUSINESS DEVELOPMENT REPRESENTATIVE FOR HOSPITALIST WAS ROUNDING ON UNIT AND STOPPED IN TO SEE PT. PT REFUSED OFFER FOR HYDROCOTISONE CREAM FOR HER ITCHING. SHE ALSO STATED THE HOSPITAL LOTION DOES NOT HELP. CONTAINERS SALES REPRESENTATIVE ORDERED ONETIME DOSE OF HYDROXYZINE. PT IS NOW RESTING QUIETLY IN BED. WILL CONTINUE TO MONITOR.
[2021-01-06 05:39] LABS: HEMATOCRIT 21.6 % (37.0-47.0); HEMOGLOBIN 7.1 gm/dL (12.0-15.0); MCH 31.4 pg (26.0-34.0); MCHC 32.6 g/dL (28.0-37.0); MCV 96.2 fL (80.0-100.0); RBC 2.25 mil/uL (4.20-5.00); RDW 15.6 % (10.5-14.5); WBC 8.6 thou/uL (4.0-11.0)
[2021-01-06 05:41] LABS: CALCIUM 8.2 mg/dL (8.5-10.1); CREATININE 1.3 mg/dL (0.6-1.0); MAGNESIUM 1.9 mg/dL (1.8-2.4); POTASSIUM 4.4 mmol/L (3.5-5.1)
[2021-01-06 05:43] LABS: INR 1.34; PROTIME 14.4 Seconds (10.5-12.1)
[2021-01-06 07:49] VITALS: BP 124/53
[2021-01-06 16:00] VITALS: BP 105/50; BP 120/52
--- NOTE | 2021-01-06 16:19 | NUR ---
PT ADMITTED RELATED TO INCREASED INR, GI BLEEDING, HEAD HEMATOMA S/P FALL, ANEMIA. CM REVIEWED CHART AND SPOKE WITH CARE TEAM. CM MET WITH PT AND JOSE/AUDI BEST AT BEDSIDE THIS AM. NASIR IS A [employer] EM[employer]EE. PT RESIDES OVER AT [facility]. PT HAD BEEN USING A FWW AND A 4WW THAT HAD LOST WHEEL CAUSING HER TO CALL. PT HAS SC, TOILET RISER AND HOSPITAL BED FOR USE AT [facility]. STAFF HAD BEEN CHECKING INR 1X PER WEEK NETWORK PROJECT MANAGER FAMILY ARE INTERESTED IN BEING CHECKED MORE REGULARLY. PT IS IN BETWEEN PCPS. PT AND FAMILY INDICATE THAT THEY ANTICPATE [place] RETURNING TO [place] WITH HH ONCE MEDICALLY STABLE. PT HAD EGD TODAY AND MIGHT HAVE COLONOSCOPY. CM FOLLOWING REGARDINDG DC PLANNING.
--- NOTE | 2021-01-06 16:31 | NUR ---
PT IS A&O*4, ROOM AIR, A FIB ON TELE. GET UP BY TWO TO THE BEDSIDE COMMODE. NO PAIN COMPLIANT AT THE MOMENT BUT VERY SENSITY TO PAIN AND FEEL COLD DUE TO ANEMIA. PT REFUSED PRE-ENDOSCOPY MEDICATION OR ENDOSCOPY PROCEDURE. REPORT TO GI NURSE, GI TEAM FIRST CALENDER WORKER AND . PT HAD ONE UNIT BLOOD ORDERED AT 11:44 BUT PT ALREADY LEFT THE FLOOR AT THAT TIME. LAB CALLED FLOOR AT 12:40 FOR BLOOD READY. CONTACT GI NURSE AT 13:10 AND PT WAS READY FOR EGD, GI NURSE SUGGEST TO GIVE BLOOD TRANSFUSION WHEN PT BACK TO FLOOR WHEN EGD DOWN. PT CAME BACK TO 461 ON 3:00. BUT ONLY HAVE ONE IV SITE FOR NS SOLUTION AND PROTONIX CONTINUE DRIP.IV TEAM PAGED AT 3:06, BE TOLD WONT BE AVALIABLE FOR A WHILE. TWO NURSE ON FLOOR TIRED TO START A NEW IV BUT COULD NOT BE DONE WITHOUT ULTRASOUNDS DUE TO PT'S VEIN CONDITION. [facility] CALLED AND PROTONIX IS NOT CAPATIBLE WITH BLOOD TRANSFUSTION. BLOOD WILL BE EXPERIED AT 16:40. SUSPEND IV PROTONIX AND NS FLUID FOR PRORITY CARE GIVEN. IV NURSE CAME TO FLOOR AT 16:30 BUT PATIENT REFUSED SECOND IV TO CONTINUE IV MEDICATION FOR NOW. WILL RESTART IV MEDICATION WHEN BLOOD TRANSFUTION IS DONE. BLOOD TRANSFUSION START AT 16:00. SECOND NURSE VERIFIED BLOOD PRODUCT AND PATIENT INFO WITH ME. PRE VS AND 15 MIN AFTER VS GOT. NO BLOOD REACTION SUSPECTED. START RATE WAS 60ML/HR AND INCREASED TO 120 ML/HR AFTER THE FIRST 15 MINS. WILL KEEP MONITOR PATIENT'S SAFETY AND VS UNTIL 60 MINS AFTER BLOOD TRANSFUSION FINISH.
[2021-01-06 17:04] VITALS: BP 105/50; BP 96/40
[2021-01-06 18:00] VITALS: BP 169/50
--- NOTE | 2021-01-07 03:41 | NUR ---
ASSUMED PT CARE AT 1900.PT C/O PAIN TO HER BACK ,MANAGED WITH MED.PT IS VERY DRAMATIC,ALWAYS COMPLAINING ABOUT BEING COLD IN HER ROOM.TEMP IN THE ROOM WAS AT 80DEGREES.PT BECAME TEARFUL.MEANWHKILE PT HAD HER DTR ON THE PHONE LISTENING TO THE CONVERSATIONS IN THE ROOM.PT CALLED OUT FOR PAIN MED AT ONE TIME THIS NURSE OVERHEARD WHEN SHE TOLD HER DTR TO KEEP QUIET AND LISTEN TO SEE WHAT THE NURSE WILL SAY.PT INSISTED ON GETTING UP TO THE BR,PT WAS ENCOURAGED TO USE THE BSC INSTEAD DUE TO HER LOW HGB.PT COMPLAINING OF ITCHING FROM HER PSORIASIS,PT REF CREAM TO BE APPLIED TO HER BACK.PT RESTING ON HER BED AT THIS TIME.CALL LIGHT WITHIN REACH.
[2021-01-07 05:32] LABS: HEMATOCRIT 24.5 % (37.0-47.0); HEMOGLOBIN 8.4 gm/dL (12.0-15.0); MCH 31.9 pg (26.0-34.0); MCHC 34.2 g/dL (28.0-37.0); MCV 93.1 fL (80.0-100.0); RBC 2.63 mil/uL (4.20-5.00); RDW 15.8 % (10.5-14.5); WBC 9.5 thou/uL (4.0-11.0)
[2021-01-07 06:14] LABS: CALCIUM 8.2 mg/dL (8.5-10.1); CREATININE 1.4 mg/dL (0.6-1.0); MAGNESIUM 1.8 mg/dL (1.8-2.4); POTASSIUM 4.1 mmol/L (3.5-5.1)
[2021-01-07 07:56] VITALS: BP 131/73
--- NOTE | 2021-01-07 11:23 | NUR ---
Pt has refused CT and colonoscopy prep not done as well. Pt has been refusing all interventions and diagnostics MD informed.
[2021-01-07] MEDS ORDERED: PROTONIX40 M2 PO (12:52)
[2021-01-07] MEDS ORDERED: CORTEF10 MG PO (12:58)
[2021-01-07 15:23] VITALS: BP 131/73
--- NOTE | 2021-01-07 16:41 | NUR ---
CARE TEAM INDICATED THAT PT MAY BE MEDICALLY STABLE TO DC BACK TO [facility] WITH HH THIS DAY. CM CALLED AND SPOKE WITH DON AT THIS DAY AND FAXED OVER CLINICAL UPDATE. CM CALLED [facility] AND NOTIFEID THEM OF POSSIBLE DC TODAY WELL. CM NOTIFIED PT'S DTR MARY JANE AND GDTR OF POSSIBLE DC. DC ORDERS WERE PUT IN LATE THIS AFTERNOON BY MACIEJ. CM MET WITH PT AND GDTR AT BEDSIDE AND THEY INDICATED THAT TODAY WAS A WORSE DAY AND THAT THEY DON'T FEEL IT SAFE FOR PT TO RETURN TO HER AL THIS DAY WITH HH SERVICES. CM NOTIFIED PHYSICIANS AND THEY INDICATED [facility] COULD BE CONSULTED. PT AND FAMILY INDICATED THAT IF NOT ABLE TO GO TO [facility] THEY WANT PT TO GO TO [facility].
[2021-01-07 17:01] VITALS: BP 126/55
[2021-01-07 19:20] VITALS: BP 136/69
[2021-01-08 03:35] LABS: HEMATOCRIT 22.5 % (37.0-47.0); HEMOGLOBIN 7.5 gm/dL (12.0-15.0); MCH 31.3 pg (26.0-34.0); MCHC 33.4 g/dL (28.0-37.0); MCV 93.9 fL (80.0-100.0); RBC 2.4 mil/uL (4.20-5.00); RDW 15.6 % (10.5-14.5); WBC 9.5 thou/uL (4.0-11.0)
[2021-01-08 03:46] LABS: CALCIUM 8.1 mg/dL (8.5-10.1); CREATININE 1.2 mg/dL (0.6-1.0); MAGNESIUM 1.8 mg/dL (1.8-2.4); POTASSIUM 4.2 mmol/L (3.5-5.1)
[2021-01-08 06:45] LABS: URINE BILIRUBIN NEGATIVE (Negative); URINE BLOOD NEGATIVE (Negative); URINE CLARITY CLEAR; URINE COLOR YELLOW; URINE GLUCOSE-RANDOM* NEGATIVE (Negative); URINE KETONES NEGATIVE (Negative); URINE LEUKOCYTES NEGATIVE (Negative); URINE NITRITE NEGATIVE (Negative); URINE PROTEIN (DIPSTICK) NEGATIVE (Negative); URINE SPECIFIC GRAVITY >= 1.030 (1.005-1.035); URINE UROBILINOGEN 0.2 E.U./dl (0.2-1.0)
--- NOTE | 2021-01-08 07:45 | NUR ---
PT LYING IN BED. LORTAB PROVIDING PAIN RELIEF. RESTING COMFORTABLY. NO NEEDS VOICED. CALL LIGHT WITHIN REACH. FREQUENT OBSERVATION.
[2021-01-08 08:06] VITALS: BP 135/78
--- NOTE | 2021-01-08 14:46 | NUR ---
[facility] ASSESSED PT THIS AM. PT INDICATED TO THEM THAT SHE ISN'T INTERESTED IN PARTICIPATING IN 3 HRS OF THERAPY PER DAY ESPECIALLY NOT OT. CM FAXED REFARRAL OVER TO [facility] AND FAMILY WERE AGREEABLE TO GOING THERE IF NOT ABLE TO GO TO [facility]. [facility] CAN ACCEPT. AWAITING TRANSPORT TIME. ORDERS FAXED. CHART COPY MADE. NURSE HAS NUMBER FOR REPORT. CM TO NOTIFY PT AND GDTR AND DTR OF TIME ONCE INDICATED. NO OTHER CM INTERVENTION INDICATED CASE CLOSED.
--- NOTE | 2021-01-08 15:52 | NUR ---
Assumed pt care vs stable. Diet and medications are tolerated well. Pain is managed with medications. Alert and oriented x 2, very forgetful and tearful. POC followed, report given to facility. Pt is now dc.
--- NOTE | 2021-01-08 17:10 | PATH ---
[facility] [place] [address] PATHOLOGY RPT PROCEDURE Name: POONAM KING Room #: 461-P DIS IN M.R.#: [id number] Admission: 01/04/21 Date of : 38 Discharge: 01/08/21 Report #: [id number] Path Case #: [id number] [facility] Accession Number: [id number] . 01 Material submitted: . PART A: duodenum - DUODENAL R/O SPRUE PART B: ANTRUM - ANTRUM BX FOR H. PYLORI PART C: gastrointestinal site - GASTRIC POLYP . 01 Clinical history: . HIATAL HERNIA, GASTRITIS, GASTRIC POLYP GI BLEED EGD . 02 Diagnosis: A. Small bowel mucosa, duodenum to rule out sprue, endoscopic biopsy: - No diagnostic abnormalities present. - Negative for villous blunting or increase in intraepithelial lymphocytes. . B. Gastric mucosa, antrum to rule out H. pylori, endoscopic biopsy: - Moderate reactive gastropathy with foci of acute gastritis. - Negative for intestinal metaplasia or atrophy. - Negative for Helicobacter pylori (properly controlled immunohistochemical stain performed). . C. Polyp, gastric polyp, endoscopic biopsy: - Inflammatory hyperplastic polyp. - Negative for dysplasia or malignancy. . 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 02 Electronically signed: . Moraima Ashley MD, Pathologist NPI- [id number] . 01 Gross description: . A. The specimen is submitted in formalin, labeled "Amy King, duodenal biopsy". Received are 3 segments of pale sales tissue ranging in size from 0.2 to 0.3 cm in maximum dimensions. The specimen is submitted in cassette A1. . B. The specimen is submitted in formalin, labeled "Amy King, antrum biopsy". Received are 2 segments of pale sales tissue ranging in size from 0.3 to 0.4 cm in maximum dimensions. The specimen is submitted in cassette B1. [address] [address] PATHOLOGY RPT PROCEDURE Name: POONAM KING Room #: 461-P DIS IN M.R.#: [id number] Admission: 01/04/21 Date of : 38 Discharge: 01/08/21 Report #: [id number] Path Case #: [id number] . C. The specimen is received in formalin, labeled "Amy King, gastric polyp". Received is a single segment of pale sales tissue measuring 0.5 cm in maximum dimensions. The specimen is submitted entirely in cassette C1. ([facility]; 01/07/2021) NRI/NRI 01/07/2021 1903 Local . 02 Pathologist provided ICD-10: K31.9, K29.00, K51.40 . 02 CPT . 837482, 568131, 744149, [id number] Specimen Comment: A courtesy copy of this report has been sent to [phone], [phone] Specimen Comment: [id number] Specimen Comment: Report sent to DR. FRAGOSO Specimen Comment: Report sent to Performed at: [address], [place] [id number] MD Maciej Potts MD Phone: [phone] Performed at: [address] [id number] MD Moraima Ashley MD Phone: [phone]
== END 2021-01-08 15:54 | DRG 377 ==
LOC: ER 08:09 → 4W 10:04 → EROBS 10:04 → 4W 14:48
PROVIDERS: Hospitalist; Internal Medicine; Nurse Practitioner; Student in an Organized Health Care Education/Training Program; ADMIT Surgery; ATTEND Surgery
DX: K29.71 Gastritis, unspecified, with bleeding (principal); N17.0 Acute kidney failure with tubular necrosis; D62 Acute posthemorrhagic anemia; I13.0 Hypertensive heart and chronic kidney disease with heart failure and stage 1 through stage 4 chronic kidney disease, or unspecified chronic kidney disease; D68.9 Coagulation defect, unspecified; I50.32 Chronic diastolic (congestive) heart failure; I48.21 Permanent atrial fibrillation; F01.51 Vascular dementia, unspecified severity, with behavioral disturbance; F02.81 Dementia in other diseases classified elsewhere, unspecified severity, with behavioral disturbance; E78.00 Pure hypercholesterolemia, unspecified; M54.9 Dorsalgia, unspecified; E11.22 Type 2 diabetes mellitus with diabetic chronic kidney disease; G89.29 Other chronic pain; S09.90XA Unspecified injury of head, initial encounter; S40.019A Contusion of unspecified shoulder, initial encounter; S00.03XA Contusion of scalp, initial encounter; I95.9 Hypotension, unspecified; Z66 Do not resuscitate; N18.30 Chronic kidney disease, stage 3 unspecified; S00.83XA Contusion of other part of head, initial encounter; F41.9 Anxiety disorder, unspecified; G30.9 Alzheimer's disease, unspecified; K44.9 Diaphragmatic hernia without obstruction or gangrene; K31.7 Polyp of stomach and duodenum; Z90.710 Acquired absence of both cervix and uterus; Z95.1 Presence of aortocoronary bypass graft; Z90.49 Acquired absence of other specified parts of digestive tract; Z85.42 Personal history of malignant neoplasm of other parts of uterus; Z85.72 Personal history of non-Hodgkin lymphomas; Z88.0 Allergy status to penicillin; Z88.2 Allergy status to sulfonamides; Z88.8 Allergy status to other drugs, medicaments and biological substances; W18.39XA Other fall on same level, initial encounter; Z91.81 History of falling; Y93.89 Activity, other specified; Y92.89 Other specified places as the place of occurrence of the external cause; Y99.8 Other external cause status; Z87.891 Personal history of nicotine dependence
CPT/HCPCS: 10045; 62110; 62900; 70005